=== PATIENT | male | born 1985 | race Hispanic/Latino ===

== ENCOUNTER 2020-08-25 11:33 | Emergency (ER) | payer SELFPAY ==
--- NOTE | ~2020-08-25 | XR_ITS ---
EXAMINATION: XR abdomen/kub 1V DATE: 08/25/2020 12:21 INDICATION: Abdominal pain. TECHNIQUE: A supine view of the abdomen was obtained. COMPARISON: None. FINDINGS: There are no dilated loops of bowel. There is a small volume of stool in the colon. There i s a 2 mm calcification in right pelvis. IMPRESSION: 1. Normal bowel gas pattern. 2. 2 mm calcification in right pelvis, which may be a phlebolith or distal ureteral stone. Reviewed, dictated and finalized at location A. IMPRESSION: 1. Normal bowel gas pattern. 2. 2 mm calcification in right pelvis, which may be a phlebolith or distal uret eral stone.
[2020-08-25 11:47] VITALS: BP 139/73; PULSE 68; RESP 16; TEMP 37.2; O2SAT 100
--- NOTE | 2020-08-25 12:11 | ECG_ITS ---
Measurements Intervals [place] Rate: 68 P: 54 FL: 146 QRS: 15 QRSD: 110 T: 40 QT: 371 QTc: 395 Interpretive Statements SINUS RHYTHM NORMAL ECG Electronically Signed On 08-25-2020 14:19:58 CDT by Carroll Ricardo D.O.
--- NOTE | 2020-08-25 12:18 | ED.GENADULT ---
HPI - General Adult General Chief complaint: Chest Pain Stated complaint: HPB Time Seen by Provider: 08/25/20 12:01 Source: patient and RN notes reviewed Mode of arrival: ambulatory Limitations: no limitations History of Present Illness HPI narrative: 35-year-old male presents with complaints of intermittent chest pain for the past 3 weeks. No treatment. Initial episode was at work, each episode last longer and no radiating down right arm and into back without nausea, diaphoresis, or radiating up into neck. Last episode last night. Exacerbating factors is eating. Jh says he eats spicy meals often. No family history of sudden . Denies fever or chills. Denies leg swelling, long car rides, history of DVT, PE, LE edema, or dizziness. LBM 08/25/20, normal. The patient reports he have not been diagnosed with COVID-19. The patient reports he is not waiting for the results of a COVID-19 lab test. The patient reports he do not have fever, weakness, or fatigue. The patient reports he do not have a new or worsening cough or shortness of breath. The patient reports he do not have any rhinorrhea, congestion, loss of taste, sore throat, and diarrhea. Tolerating po intake well. Denies recent traveling. Denies concerns for COVID-19 or exposures been home with limited outdoor exposure except for essential household needs, work, and return home. At this time, patient is not suspected of having COVID-19. Some parts of this dictation were generated by voice recognition software and may contain typographical and/or grammatical inaccuracies. Related Data Allergies Allergy/AdvReac Type Severity Reaction Status Date / Time No Known Allergies Allergy Verified 08/25/20 11:59 Review of Systems Review of Systems: Narrative: CONSTITUTIONAL: Denies fever, chills, sweats. EYES: Denies visual changes, redness, discharge. ENT: Denies rhinorrhea, congestion, sore throat, otalgia. CARDIOVASCULAR: Complains of intermittent chest pain. Denies palpitations, edema, diaphoresis. RESPIRATORY: Denies dyspnea, wheezing, cough. GASTROINTESTINAL: Denies abdominal pain, nausea, vomiting, diarrhea. GENITOURINARY: Denies dysuria, hematuria, abnormal discharge. SKIN: Denies rash or itching. MUSCULOSKELETAL: Denies acute back pain or myalgia. NEUROLOGIC: Denies numbness or focal weakness. PSYCHIATRIC: Denies anxiety or depression. All systems reviewed & are unremarkable except as noted in HPI and below PMFSH Past Medical History Medical History (Updated 08/26/20 @ 00:00 by Kenyetta Dakraig) No significant past medical history Surgical History Surgical History (Updated 08/25/20 @ 12:46 by AUNDREA Chacon) No significant past surgical history Family History Family History (Updated 08/25/20 @ 12:47 by AUNDREA Chacon) Father Alive and well Mother Hypertension Hypercholesteremia Social History Social History (Updated 08/25/20 @ 12:47 by AUNDREA Chacon) Smoking status: Never smoker Tobacco type: cigarettes Second hand tobacco smoke exposure: No Alcohol intake: current Substance use: never Gender identity (if verbalized by the patient): Male Comments At time of signature, agree with nurse past medical, surgical, social, and family history. There is no relevant family history pertinent to the presenting complaint. Exam Narrative: Exam Narrative: GENERAL: This is a well-nourished, well-developed patient, in no apparent distress. Talks in full sentences without deficits and ambulates with steady gait without dyspnea. HEAD: normocephalic, atraumatic. EYES: PERRL. Sclera clear/white. Vision is grossly intact. THROAT: Mucous membranes moist, posterior pharynx clear. NECK: Neck supple, non-tender without lymphadenopathy, masses or thyromegaly. CARDIOVASCULAR: Regular rate and rhythm without murmurs, gallops, or rubs. RESPIRATORY: Clear to auscultation. Breath sounds equal bilaterally. No wheezes, ra
== END 2020-08-25 12:39 | disposition short-term general hospital (02) ==
PROVIDERS: Emergency Provider Nurse Practitioner Family
DX: R07.9 Chest pain, unspecified (principal)
CPT/HCPCS: 74018; 93005; 99203; G0463

== ENCOUNTER 2020-08-25 13:24 | Emergency (ER) | payer SELFPAY ==
[2020-08-25] VITALS (12 sets, daily range): BP systolic 113–137; BP diastolic 62–122; PULSE 61–70; RESP 12–20; TEMP 36.3; O2SAT 97–100
--- NOTE | ~2020-08-25 | XR_ITS ---
EXAMINATION: XR chest 2V DATE: 08/25/2020 14:23 INDICATION: Chest pain. TECHNIQUE: Frontal and lateral views of the chest were obtained. COMPARISON: None. FINDINGS: The chest demonstrates clear lungs without pneumonia, pleural effusion, or pneumothorax. Th e heart size is normal. IMPRESSION: 1. No acute cardiopulmonary disease. Reviewed, dictated and finalized at location A.
--- NOTE | 2020-08-25 13:35 | ECG_ITS ---
Measurements Intervals [place] Rate: 69 P: 63 PA: 157 QRS: 30 QRSD: 102 T: 52 QT: 372 QTc: 399 Interpretive Statements SINUS RHYTHM BASELINE ARTIFACT- II, III, AVF NORMAL ECG Electronically Signed On 08-25-2020 14:20:31 CDT by Carroll Ricardo D.O.
[2020-08-25 14:06] LABS: Basophils Percent Auto 0.4 % (0.2-1.2); Eosinophils Absolute Auto 0.1 K/mm3 (0-0.3); Eosinophils Percent Auto 0.8 % (0-4.4); Hematocrit 48.3 % (42.0-52.0); Hemoglobin 17.1 g/dL (14.0-18.0); Immature Granulocyte Absolute 0.03 K/mm3 (0.00-0.031); Immature Granulocyte Percent A 0.4 % (0-0.5); Lymphocytes Absolute Auto 1.46 K/mm3 (0.9-3.2); Lymphocytes Percent Auto 18.8 % (18.3-44.2); Mean Corpuscular HGB Conc 35.4 g/dl (32-36); Mean Corpuscular Hemoglobin 29.7 pg (26-34); Mean Corpuscular Volume 83.9 fl (80-100); Mean Platelet Volume 10.3 fl (7.4-10.4); Monocytes Absolute Auto 0.4 K/mm3 (0.1-0.6); Monocytes Percent Auto 5.1 % (2.6-8.5); Neutrophils Absolute Auto 5.8 K/mm3 (1.3-6.7); Neutrophils Percent Auto 74.5 % (45.5-73.1); Platelet Count Result 239 k/mm3 (150-375); Red Blood Count 5.76 M/mm3 (4.6-6.20); Red Cell Distribution Width 12.4 % (11.5-14.5); White Blood Count 7.8 K/mm3 (4.5-10.0)
[2020-08-25 14:08] LABS: Add Urine Microscopic? NO; Appearance Urine Clear (Clear); Bilirubin Urine Negative (Negative); Blood Urine Negative (Negative); Color Urine Yellow (Yellow); Glucose Urine UA Negative (Negative); Ketones Urine Negative (Negative); Leukocyte Esterase Ur Negative LEU/UL (Negative); Nitrate Urine Negative (Negative); Protein Urine Negative (Negative); Specific Grav Ur 1.013 (1.001-1.035); Urobilinogen Urine Negative mg/dL (<2.0)
[2020-08-25 14:13] LABS: Partial Thromboplastin Time 24.4 SECONDS (22.3-36.8); Prothrombin Time 12.5 Seconds (11.1-14.7)
[2020-08-25 14:16] LABS: Anion Gap 9 mmol/L (8-16); Blood Urea Nitrogen 13 mg/dL (9-20); Calcium 9.5 mg/dL (8.4-10.2); Carbon Dioxide 28 mmol/L (22-30); Chloride 103 mmol/L (98-107); Estimated CRCL calculation 116 ml/min; Estimated Glomerular Filt Rate > 60; Glucose 98 mg/dL (75-110); Potassium 3.9 mmol/L (3.4-5.0); Sodium 140 mmol/L (137-145)
[2020-08-25 14:28] LABS: Troponin I < 0.012 ng/mL (0.000-0.034)
--- NOTE | 2020-08-25 14:58 | ED.CHESTPAIN ---
HPI - Chest Pain General Chief Complaint: Chest Pain Stated Complaint: abd pain Time Seen by Provider: 08/25/20 13:30 History of Present Illness HPI narrative: Patient is a 35-year-old male who presents to the ER with left-sided chest pain. Ongoing for 3 weeks but increasing in frequency. Last chest pain was last night. It will last for about 10 minutes at a time. It is central and occasionally radiates to his shoulder back. No numbness or tingling in the affected arm. No nausea/vomiting/sweats/chills. Not associated with eating or drinking. Reports it did initially feel like heartburn. It does improve when he drinks cold water. No exertional component. No family history of coronary disease. Related Data Allergies Allergy/AdvReac Type Severity Reaction Status Date / Time No Known Allergies Allergy Verified 08/25/20 11:59 Review of Systems Review of Systems: All systems reviewed & are unremarkable except as noted in HPI and below Constitutional: Constitutional: Denies chills, Denies fever(s) and Denies weakness ENT: Denies nasal congestion and Denies sore throat Cardiovascular: Cardiovascular: Reports chest pain, Denies rapid heart rate and Reports radiating jaw, neck or arm pain Respiratory: Respiratory: Denies cough, Denies dyspnea and Denies wheezing Gastrointestinal: Gastrointestinal: Denies abdominal pain, Denies bloating, Reports heartburn, Denies nausea and Denies vomiting Neurologic: Denies dizziness, Denies focal weakness and Denies numbness PMFSH Past Medical History Medical History (Updated 08/25/20 @ 15:35 by Ortiz Watson MD) No significant past medical history Surgical History Surgical History (Updated 08/25/20 @ 12:46 by AUNDREA Chacon) No significant past surgical history Family History Family History (Updated 08/25/20 @ 12:47 by AUNDREA Chacon) Father Alive and well Mother Hypertension Hypercholesteremia Social History Social History (Updated 08/25/20 @ 12:47 by AUNDREA Chacon) Smoking status: Never smoker Tobacco type: cigarettes Second hand tobacco smoke exposure: No Alcohol intake: current Substance use: never Gender identity (if verbalized by the patient): Male Exam Narrative: Exam Narrative: GENERAL: Well-appearing, well-nourished, and in no acute distress. HEAD: Normocephalic, atraumatic. ENT: Mucous membranes moist. CHEST: Clear to auscultation. No respiratory distress. HEART: Regular rate and rhythm. Normal peripheral pulses. ABDOMEN: Soft, nontender, nondistended. EXTREMITIES: Normal range of motion. No edema. SKIN: Warm, dry, no rash. NEURO: Alert and oriented x3. Course Course Emergency Course: Informed results. Pain-free here. Discharge home. Will start on reflux medication. Will give PCP follow-up. Vital Signs Vital signs: Vital Signs Temperature 97.4 F L 08/25/20 13:36 Pulse Rate 70 08/25/20 13:36 Respiratory Rate 12 08/25/20 13:36 Blood Pressure 137/62 08/25/20 13:36 Pulse Oximetry 99 08/25/20 13:36 Temperature 97.4 F L 08/25/20 13:36 Pulse Rate 70 08/25/20 13:36 Respiratory Rate 12 08/25/20 13:36 Blood Pressure 137/62 08/25/20 13:36 Pulse Oximetry 99 08/25/20 13:36 MDM - Chest Pain Lab Data Result diagrams: 08/25/20 13:55 08/25/20 13:55 Labs: Lab Results 08/25/20 08/25/20 08/25/20 Range/Units 13:55 13:55 13:55 WBC 7.8 (4.5-10.0) K/mm3 RBC 5.76 (4.6-6.20) M/mm3 Hgb 17.1 (14.0-18.0) g/dL Hct 48.3 (42.0-52.0) % MCV 83.9 (80-100) fl MCH 29.7 (26-34) pg MCHC 35.4 (32-36) g/dl RDW 12.4 (11.5-14.5) % Plt Count 239 (150-375) k/mm3 MPV 10.3 (7.4-10.4) fl Immature Gran % (Auto) 0.4 (0-0.5) % Neut % (Auto) 74.5 H (45.5-73.1) % Lymph % (Auto) 18.8 (18.3-44.2) % [place] % (Auto) 5.1 (2.6-8.5) % Eos % (Auto) 0.8 (0-4.4) % Baso % (Auto) 0.4
== END 2020-08-25 15:55 | disposition home or self-care (01) ==
PROVIDERS: Emergency Provider Emergency Medicine
DX: R07.9 Chest pain, unspecified (principal); K21.9 Gastro-esophageal reflux disease without esophagitis
CPT/HCPCS: 36415; 71046; 80048; 81003; 84484; 85025; 85610; 85730; 93005; 99284

== ENCOUNTER 2024-09-09 01:54 | Emergency (ER) | payer SELFPAY ==
[2024-09-09] VITALS (22 sets, daily range): BP systolic 116–153; BP diastolic 67–88; PULSE 101–118; RESP 12–21; TEMP 37; O2SAT 97–100
--- NOTE | 2024-09-09 01:58 | ED_ITS ---
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 Patient reports that he drank alcohol this evening and reports that he ate a marijuana Brownie the patient reports that he has never used marijuana before in the past reports that he felt very anxious and reports that since he has arrived to the emergency department he feels much better and is only complaining of a dry mouth. Related Data Allergies Allergy/AdvReac Type Severity Reaction Status Date / Time No Known Allergies Allergy Verified 09/09/24 01:58 CDT Review of Systems Review of Systems: A 10 system review of systems was completed on the patient and is negative except for what is stated in the HPI. Nursing and ancillary documentation was reviewed. 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 HEAD: Normocephalic, atraumatic. EYES: PERRLA and EOMI. ENT: Nares clear, no rhinorrhea or epistaxis. Mucous membranes moist. NECK: Supple. CHEST: Clear to auscultation. No respiratory distress. HEART: Regular rate and rhythm. No murmur heard. Normal peripheral pulses. ABDOMEN: Soft, nontender, nondistended, normal active bowel sounds. EXTREMITIES: Normal range of motion. No edema. SKIN: Warm, dry, no rash. NEURO: No focal deficits. Alert and oriented x3. PSYCH: Normal mood and affect. Course Vital Signs Vital signs: Vital Signs Temperature 37.0 C 09/09/24 01:51 CDT Pulse Rate 111 H 09/09/24 01:51 CDT Respiratory Rate 15 09/09/24 01:51 CDT Blood Pressure 153/86 H 09/09/24 01:51 CDT Pulse Oximetry 100 09/09/24 01:51 CDT Oxygen Delivery Room Air 09/09/24 01:51 CDT Temperature 37.0 C 09/09/24 01:51 CDT Pulse Rate 111 H 09/09/24 01:51 CDT Respiratory Rate 15 09/09/24 01:51 CDT Blood Pressure 153/86 H 09/09/24 01:51 CDT Pulse Oximetry 100 09/09/24 01:51 CDT Oxygen Delivery Room Air 09/09/24 01:51 CDT Medical Decision Making MDM Narrative Medical decision making narrative: Differential diagnosis includes accidental marijuana ingestion, alcohol intoxication The patient is nontoxic appearing alert oriented able answer all questions Vital Signs Vital Signs: Vital Signs Temperature 37.0 C 09/09/24 01:51 CDT Pulse Rate 111 H 09/09/24 01:51 CDT Respiratory Rate 15 09/09/24 01:51 CDT Blood Pressure 153/86 H 09/09/24 01:51 CDT Pulse Oximetry 100 09/09/24 01:51 CDT Oxygen Delivery Room Air 09/09/24 01:51 CDT Temperature 37.0 C 09/09/24 01:51 CDT Pulse Rate 111 H 09/09/24 01:51 CDT Respiratory Rate 15 09/09/24 01:51 CDT Blood Pressure 153/86 H 09/09/24 01:51 CDT Pulse Oximetry 100 09/09/24 01:51 CDT Oxygen Delivery Room Air 09/09/24 01:51 CDT Discharge Plan Discharge Clinical Impression: Cannabis intoxication Qualifiers: Complication of substance-induced condition: uncomplicated Qualified Code(s): F12.920 - Cannabis use, unspecified with intoxication, uncomplicated Patient Disposition: Home, Self-Care Condition: Stable Instructions: Antibiotic Form, Cannabis Use Disorder (ED) Prescriptions: No Action famotidine 20 mg tablet 20 mg PO HS Qty: 20 0RF Follow-up/Referrals: Zay Aevry MD [Physician] - UNKNOWN,DOCTOR [Primary Care Provider] -
== END 2024-09-09 04:32 | disposition home or self-care (01) ==
PROVIDERS: Emergency Provider Emergency Medicine
DX: F12.920 Cannabis use, unspecified with intoxication, uncomplicated (principal); F10.90 Alcohol use, unspecified, uncomplicated; Y90.9 Presence of alcohol in blood, level not specified
CPT/HCPCS: 99281